=== PATIENT | female | born 1950 | race Caucasian/White ===

== ENCOUNTER 2019-06-04 08:02 | Outpatient (CLI) | payer MEDICARE, SELFPAY ==
[2019-06-04 08:17] LABS: Add Urine Microscopic? NO; Appearance Urine Clear (Clear); Basophils Absolute Auto 0.01 K/mm3 (0.00-0.10); Basophils Percent Auto 0.2 % (0.0-1.0); Bilirubin Urine Negative (Negative); Blood Urine Negative (Negative); Color Urine Yellow (Yellow); Eosinophils Absolute Auto 0.12 K/mm3 (0.02-0.50); Eosinophils Percent Auto 2.8 % (1.0-6.0); Glucose Urine UA Negative (Negative); Hematocrit 39.4 % (35.0-42.0); Hemoglobin 13.1 g/dL (11.7-13.8); Ketones Urine Negative (Negative); Leukocyte Esterase Ur Negative LEU/UL (Negative); Lymphocytes Percent Auto 30.4 % (18.0-42.0); Mean Corpuscular HGB Conc 33.2 g/dL (32.0-36.0); Mean Corpuscular Hemoglobin 30.3 pg (27.0-31.0); Mean Platelet Volume 10.4 fl (9.2-11.8); Monocytes Absolute Auto 0.34 K/mm3 (0.10-0.90); Neutrophils Absolute Auto 2.5 K/mm3 (1.7-7.2); Neutrophils Percent Auto 58.6 % (50.0-70.0); Nitrate Urine Negative (Negative); Platelet Count Result 237 K/mm3 (150-420); Protein Urine Negative (Negative); Red Blood Count 4.33 M/mm3 (4.20-5.40); Red Cell Distribution Width 12.8 % (11.6-14.4); Specific Grav Ur >= 1.030 (1.010-1.020); Urobilinogen Urine 0.2 mg/dL (0.2-1.0); White Blood Count 4.3 K/mm3 (4.8-10.8)
[2019-06-04 09:10] LABS: Alanine Aminotransferase 28 U/L (14-59); Alkaline Phosphatase 61 U/L (46-116); Anion Gap 15.3 mmol/L (7-16); Aspartate Amino Transferase 19 U/L (15-37); Bilirubin,Total 0.6 mg/dL (0.00-1.00); Blood Urea Nitrogen 15 mg/dL (7-18); Calcium 9.1 mg/dL (8.5-10.1); Carbon Dioxide 28 mmol/L (21-32); Chloride 106 mmol/L (98-108); Cholesterol 226 mg/dL (0-200); Estimated Glomerular Filt Rate 60; Glucose 85 mg/dL (70-99); HDL Direct 86 mg/dL (40-60); LDL Cholesterol Calculated 127 mg/dL (<130); Osmolality Calculated 299 mOsm/kg (285-295); Potassium 4.3 mmol/L (3.5-5.1); Sodium 145 mmol/L (136-145); Thyroid Stimulating Hormone 0.95 uIU/mL (0.36-3.74); Total Protein 6.9 g/dL (6.4-8.2); Triglycerides 67 mg/dL (0-150)
== END 2019-06-04 08:03 | disposition home or self-care (01) ==
PROVIDERS: PCP Internal Medicine; Visit Provider Internal Medicine
DX: E03.9 Hypothyroidism, unspecified (principal); E78.5 Hyperlipidemia, unspecified; D72.818 Other decreased white blood cell count; R10.10 Upper abdominal pain, unspecified
CPT/HCPCS: 36415; 80053; 80061; 81003; 84443; 85025

== ENCOUNTER 2020-06-13 08:47 | Outpatient (CLI) | payer MEDICARE, SELFPAY ==
[2020-06-13 09:12] LABS: Basophils Absolute Auto 0.01 K/mm3 (0.00-0.10); Basophils Percent Auto 0.2 % (0.0-1.0); Eosinophils Percent Auto 2.3 % (1.0-6.0); Hematocrit 40.8 % (35.0-42.0); Hemoglobin 13.6 g/dL (11.7-13.8); Immature Granulocyte Absolute 0.01 K/mm3 (0.00-0.00); Immature Granulocyte Percent A 0.2 % (0.0-0.0); Lymphocytes Absolute Auto 1.49 K/mm3 (1.10-4.50); Lymphocytes Percent Auto 34.7 % (18.0-42.0); Mean Corpuscular HGB Conc 33.3 g/dL (32.0-36.0); Mean Corpuscular Hemoglobin 30.4 pg (27.0-31.0); Mean Corpuscular Volume 91.3 fL (78.0-102.0); Mean Platelet Volume 10.5 fl (9.2-11.8); Monocytes Absolute Auto 0.37 K/mm3 (0.10-0.90); Monocytes Percent Auto 8.6 % (2.0-11.0); Neutrophils Absolute Auto 2.3 K/mm3 (1.7-7.2); Platelet Count Result 234 K/mm3 (150-420); Red Blood Count 4.47 M/mm3 (4.20-5.40); White Blood Count 4.3 K/mm3 (4.8-10.8)
[2020-06-13 09:13] LABS: Add Urine Microscopic? NO; Appearance Urine Clear (Clear); Bilirubin Urine Negative (Negative); Blood Urine Negative (Negative); Color Urine Yellow (Yellow); Glucose Urine UA Negative (Negative); Ketones Urine Negative (Negative); Leukocyte Esterase Ur Negative LEU/UL (Negative); Nitrate Urine Negative (Negative); Protein Urine Negative (Negative); Urobilinogen Urine 0.2 mg/dL (0.2-1.0)
[2020-06-13 10:13] LABS: Alanine Aminotransferase 40 U/L (14-59); Albumin Level 4.1 g/dL (3.4-5.0); Alkaline Phosphatase 74 U/L (46-116); Anion Gap 8 mmol/L (8-16); Aspartate Amino Transferase 23 U/L (15-37); Bilirubin,Total 0.7 mg/dL (0.00-1.00); Blood Urea Nitrogen 16 mg/dL (7-18); Calcium 9.3 mg/dL (8.5-10.1); Carbon Dioxide 30 mmol/L (21-32); Chloride 104 mmol/L (98-108); Cholesterol 244 mg/dL (0-200); Estimated Glomerular Filt Rate 56; Glucose 87 mg/dL (70-99); HDL Direct 82 mg/dL (40-60); LDL Cholesterol Calculated 143 mg/dL (<130); Osmolality Calculated 294 mOsm/kg (285-295); Potassium 4.7 mmol/L (3.5-5.1); Sodium 142 mmol/L (136-145); Thyroid Stimulating Hormone 0.59 uIU/mL (0.36-3.74); Total Protein 7.1 g/dL (6.4-8.2); Triglycerides 93 mg/dL (0-150)
== END 2020-06-13 08:48 | disposition home or self-care (01) ==
LOC: CHSLAB 08:49
PROVIDERS: PCP Internal Medicine; Visit Provider Internal Medicine
DX: E03.9 Hypothyroidism, unspecified (principal); E78.5 Hyperlipidemia, unspecified; Z79.899 Other long term (current) drug therapy
CPT/HCPCS: 36415; 80053; 80061; 81003; 84443; 85025

== ENCOUNTER 2021-05-27 07:48 | Outpatient (CLI) | payer MEDICARE, SELFPAY ==
[2021-05-27 08:02] LABS: Basophils Absolute Auto 0.01 K/mm3 (0.00-0.10); Basophils Percent Auto 0.2 % (0.0-1.0); Eosinophils Absolute Auto 0.09 K/mm3 (0.02-0.50); Hematocrit 42.3 % (35.0-42.0); Hemoglobin 14.1 g/dL (11.7-13.8); Lymphocytes Absolute Auto 1.61 K/mm3 (1.10-4.50); Lymphocytes Percent Auto 35.7 % (18.0-42.0); Mean Corpuscular HGB Conc 33.3 g/dL (32.0-36.0); Mean Corpuscular Hemoglobin 30.5 pg (27.0-31.0); Mean Corpuscular Volume 91.4 fL (78.0-102.0); Mean Platelet Volume 10.6 fl (9.2-11.8); Monocytes Absolute Auto 0.33 K/mm3 (0.10-0.90); Monocytes Percent Auto 7.3 % (2.0-11.0); Neutrophils Absolute Auto 2.5 K/mm3 (1.7-7.2); Neutrophils Percent Auto 54.8 % (50.0-70.0); Platelet Count Result 242 K/mm3 (150-420); Red Blood Count 4.63 M/mm3 (4.20-5.40); Red Cell Distribution Width 13.2 % (11.6-14.4); White Blood Count 4.5 K/mm3 (4.8-10.8)
[2021-05-27 08:14] LABS: Add Urine Microscopic? YES; Appearance Urine Sl Cloudy (Clear); Bacteria Urine 2+ /hpf; Bilirubin Urine Negative (Negative); Blood Urine Negative (Negative); Color Urine Yellow (Yellow); Glucose Urine UA Negative (Negative); Ketones Urine Negative (Negative); Leukocyte Esterase Ur Negative LEU/UL (Negative); Nitrate Urine Negative (Negative); Protein Urine Negative (Negative); RBC Urine None seen /hpf (0-2); Specific Grav Ur 1.025 (1.010-1.020); Squamous Epithelial Cell Urine Moderate /hpf (Few); Urobilinogen Urine 0.2 mg/dL (0.2-1.0); WBC Urine 0-3 /hpf (0-3)
[2021-05-27 09:26] LABS: Alanine Aminotransferase 39 U/L (14-59); Albumin Level 3.9 g/dL (3.4-5.0); Alkaline Phosphatase 87 U/L (46-116); Anion Gap 9 mmol/L (8-16); Aspartate Amino Transferase 24 U/L (15-37); Bilirubin,Total 0.5 mg/dL (0.00-1.00); Blood Urea Nitrogen 15 mg/dL (7-18); Calcium 9.1 mg/dL (8.5-10.1); Carbon Dioxide 28 mmol/L (21-32); Chloride 105 mmol/L (98-108); Cholesterol 253 mg/dL (0-200); Estimated Glomerular Filt Rate > 60; Glucose 91 mg/dL (70-99); HDL Direct 85 mg/dL (40-60); LDL Cholesterol Calculated 152 mg/dL (<130); Osmolality Calculated 294 mOsm/kg (285-295); Potassium 4.6 mmol/L (3.5-5.1); Sodium 142 mmol/L (136-145); Thyroid Stimulating Hormone 0.61 uIU/mL (0.36-3.74); Triglycerides 80 mg/dL (0-150)
== END 2021-05-27 07:49 | disposition home or self-care (01) ==
LOC: CHSLAB 07:50
PROVIDERS: PCP Internal Medicine; Visit Provider Internal Medicine
DX: E03.9 Hypothyroidism, unspecified (principal); E78.5 Hyperlipidemia, unspecified
CPT/HCPCS: 36415; 80053; 80061; 81001; 84443; 85025

== ENCOUNTER 2021-06-15 13:50 | Outpatient (CLI) | payer MEDICARE, SELFPAY ==
--- NOTE | ~2021-06-15 | DEXA_ITS ---
Bone Density Report Name: DAMIAN RIZZO Age: 70 Sex: Female Ethnicity: White Date of : 1950 Indication: postmenopausal; screening for osteoporosis; hysterectomy; Referring Provider: Lex Crenshaw Study: Bone densitometry was performed. Exam Date: June 15, 2021 Accession number: [id number] Bone Density: Region BMD T-score Z-score Classification AP Spine(L1-L4) 1.002 -0.4 1.7 Normal Femoral Neck (Left) 0.827 -0.2 1.6 Normal Total Hip (Left) 1.008 0.5 2.0 Normal Femoral Neck (Right) 0.825 -0.2 1.6 Normal Total Hip (Right) 0.947 0.0 1.5 Normal Femoral Neck Mean 0.826 -0.2 1.6 Normal Total Hip Mean 0.978 0.3 1.8 Normal World Health Organization criteria for BMD impression classify patients as: Normal (T-score at or above -1.0), Osteopenia (T-score between -1.0 and -2.5), or Osteoporosis (T-score at or below -2.5). 10-year Fracture Risk: FRAX not reported because: All T-scores for Spine Total, Hip Total, Femoral Neck at or above -1.0 Clinical Information Provided by Patient: Has used the following medications: Calcium Has the following medical conditions: Hysterectomy Patient maximum height was 64 Menopause Age: 40 No regular weight bearing exercise Does not regularly consume dairy products Drinks caffeinated beverages Onset of menses at age 13 Number of children 1 Impression: The patient has normal bone mass. Discussion: BONE DENSITY IS ABOVE THE MINIMUM DESIRABLE LEVEL AT ALL SKELETAL SITES TESTED. This patient?s bone mineral density is above the minimum desirable level (T-score -1.0 or better) at all sites measured. The patient should follow a healthful lifestyle (good nutrition with adequate calcium and vitamin D, and appropriate weight-bearing exercise). Follow-Up: Consider repeating this study in 5 years or sooner if there is some new clinical indication. Reported by: Dr. Artur Ferrera on 06/15/2021 2:11:00 PM. Reviewed, dictated and finalized at location A. [facility]
== END 2021-06-15 13:51 | disposition home or self-care (01) ==
LOC: CHSIMG 13:51
PROVIDERS: PCP Internal Medicine; Visit Provider Internal Medicine
DX: M81.0 Age-related osteoporosis without current pathological fracture (principal)
CPT/HCPCS: 77080

== ENCOUNTER 2022-05-21 07:47 | Outpatient (CLI) | payer MEDICARE, SELFPAY ==
[2022-05-21 08:02] LABS: Appearance Urine Clear (Clear); Bilirubin Urine Negative (Negative); Blood Urine Negative (Negative); Color Urine Light Yellow (Yellow); Eosinophils Absolute Auto 0.09 K/mm3 (0.02-0.50); Eosinophils Percent Auto 2.1 % (1.0-6.0); Glucose Urine UA Negative (Negative); Hematocrit 42.2 % (35.0-42.0); Hemoglobin 13.9 g/dL (11.7-13.8); Ketones Urine Negative (Negative); Leukocyte Esterase Ur Negative LEU/UL (Negative); Lymphocytes Absolute Auto 1.43 K/mm3 (1.10-4.50); Lymphocytes Percent Auto 33.3 % (18.0-42.0); Mean Corpuscular HGB Conc 32.9 g/dL (32.0-36.0); Mean Corpuscular Volume 91.1 fL (78.0-102.0); Mean Platelet Volume 10.6 fl (9.2-11.8); Monocytes Absolute Auto 0.35 K/mm3 (0.10-0.90); Monocytes Percent Auto 8.2 % (2.0-11.0); Neutrophils Absolute Auto 2.4 K/mm3 (1.7-7.2); Neutrophils Percent Auto 56.4 % (50.0-70.0); Nitrate Urine Negative (Negative); Platelet Count Result 248 K/mm3 (150-420); Protein Urine Negative (Negative); Red Blood Count 4.63 M/mm3 (4.20-5.40); Red Cell Distribution Width 13.1 % (11.6-14.4); Specific Grav Ur 1.015 (1.010-1.020); Urobilinogen Urine 0.2 mg/dL (0.2-1.0); White Blood Count 4.3 K/mm3 (4.8-10.8)
[2022-05-21 08:05] LABS: Add Urine Microscopic? NO
[2022-05-21 09:09] LABS: Alanine Aminotransferase 33 U/L (14-59); Alkaline Phosphatase 70 U/L (46-116); Anion Gap 7 mmol/L (8-16); Aspartate Amino Transferase 23 U/L (15-37); Bilirubin,Total 0.5 mg/dL (0.00-1.00); Blood Urea Nitrogen 16 mg/dL (7-18); Calcium 9.1 mg/dL (8.5-10.1); Carbon Dioxide 29 mmol/L (21-32); Chloride 106 mmol/L (98-108); Cholesterol 244 mg/dL (0-200); Estimated Glomerular Filt Rate > 60; Free T3 2.61 pg/mL (2.18-3.98); Free T4 Free Thyroxine 1.17 ng/dL (0.76-1.46); Glucose 91 mg/dL (70-99); HDL Direct 77 mg/dL (40-60); LDL Cholesterol Calculated 147 mg/dL (<130); Osmolality Calculated 295 mOsm/kg (285-295); Potassium 4.5 mmol/L (3.5-5.1); Sodium 142 mmol/L (136-145); Thyroid Stimulating Hormone 0.29 uIU/mL (0.36-3.74); Triglycerides 99 mg/dL (0-150)
== END 2022-05-21 07:48 | disposition home or self-care (01) ==
PROVIDERS: PCP Internal Medicine; Visit Provider Internal Medicine
DX: E03.9 Hypothyroidism, unspecified (principal); I10 Essential (primary) hypertension; E78.5 Hyperlipidemia, unspecified; N39.0 Urinary tract infection, site not specified
CPT/HCPCS: 36415; 80053; 80061; 81003; 84439; 84443; 84481; 85025

== ENCOUNTER 2023-05-03 18:47 | Outpatient (CLI) | payer MEDICARE, SELFPAY ==
--- NOTE | ~2023-05-03 | XR_ITS ---
EXAMINATION: XR chest 2V Exam Date/Time: 05/03/2023 18:55 CORRECTIONAL GUARD HISTORY: F/U FOR PNEUMONIA Comparison: 10/14/2016. RESULT: Lines, tubes, and devices: None. Lungs and pleura: Clear. Senescent changes. Granulomatous calcifications. Cardiomediastinal silhouette: Stable. Other: No acute osseous or upper abdominal finding. IMPRESSION: No acute cardiopulmonary process. Reviewed, dictated and finalized at location K. ECTIONAL GUARD
== END 2023-05-03 18:48 | disposition home or self-care (01) ==
LOC: CHSIMG 18:50
PROVIDERS: PCP Internal Medicine; Visit Provider Internal Medicine
DX: J18.8 Other pneumonia, unspecified organism (principal)
CPT/HCPCS: 71046

== ENCOUNTER 2023-06-15 07:51 | Outpatient (CLI) | payer MEDICARE, SELFPAY ==
[2023-06-15 08:08] LABS: Eosinophils Absolute Auto 0.07 K/mm3 (0.02-0.50); Eosinophils Percent Auto 1.6 % (1.0-6.0); Hematocrit 42.7 % (35.0-42.0); Hemoglobin 14.2 g/dL (11.7-13.8); Immature Granulocyte Absolute 0.01 K/mm3 (0.00-0.00); Immature Granulocyte Percent A 0.2 % (0.0-0.0); Lymphocytes Absolute Auto 1.46 K/mm3 (1.10-4.50); Lymphocytes Percent Auto 33.2 % (18.0-42.0); Mean Corpuscular HGB Conc 33.3 g/dL (32-36); Mean Corpuscular Hemoglobin 29.8 pg (27.0-31.0); Mean Corpuscular Volume 89.5 fL (78.0-102.0); Mean Platelet Volume 10.6 fl (9.2-11.8); Monocytes Absolute Auto 0.34 K/mm3 (0.10-0.90); Monocytes Percent Auto 7.7 % (2.0-11.0); Neutrophils Absolute Auto 2.52 K/mm3 (1.70-7.20); Neutrophils Percent Auto 57.3 % (50.0-70.0); Platelet Count Result 230 K/mm3 (150-420); Red Blood Count 4.77 M/mm3 (4.20-5.40); White Blood Count 4.4 K/mm3 (4.8-10.8)
[2023-06-15 08:10] LABS: Appearance Urine Clear (Clear); Bilirubin Urine Negative (Negative); Blood Urine Negative (Negative); Color Urine Yellow (Yellow); Glucose Urine UA Negative (Negative); Ketones Urine Negative (Negative); Leukocyte Esterase Ur Negative LEU/UL (Negative); Nitrate Urine Negative (Negative); Protein Urine Negative (Negative); Specific Grav Ur 1.015 (1.010-1.020); Urobilinogen Urine 0.2 mg/dL (0.2-1.0)
[2023-06-15 08:14] LABS: Add Urine Microscopic? NO
[2023-06-15 08:57] LABS: Alanine Aminotransferase 35 U/L (14-59); Albumin Level 3.9 g/dL (3.4-5.0); Alkaline Phosphatase 72 U/L (46-116); Anion Gap 9 mmol/L (8-16); Aspartate Amino Transferase 25 U/L (15-37); Bilirubin,Total 0.5 mg/dL (0.00-1.00); Blood Urea Nitrogen 19 mg/dL (7-18); Calcium 9.3 mg/dL (8.5-10.1); Carbon Dioxide 27 mmol/L (21-32); Chloride 106 mmol/L (98-108); Cholesterol 254 mg/dL (0-200); Estimated Glomerular Filt Rate > 60; Glucose 92 mg/dL (70-99); HDL Direct 90 mg/dL (40-60); LDL Cholesterol Calculated 147 mg/dL (<130); Osmolality Calculated 296 mOsm/kg (285-295); Potassium 4.5 mmol/L (3.5-5.1); Sodium 142 mmol/L (136-145); Thyroid Stimulating Hormone 0.39 uIU/mL (0.36-3.74); Total Protein 6.8 g/dL (6.4-8.2); Triglycerides 84 mg/dL (0-150)
== END 2023-06-15 07:52 | disposition home or self-care (01) ==
LOC: CHSLAB 07:53
PROVIDERS: PCP Internal Medicine; Visit Provider Internal Medicine
DX: E03.9 Hypothyroidism, unspecified (principal); E78.5 Hyperlipidemia, unspecified
CPT/HCPCS: 36415; 80053; 80061; 81003; 84443; 85025

== ENCOUNTER 2024-04-27 10:41 | Outpatient (CLI) | payer MEDICARE, SELFPAY ==
--- NOTE | ~2024-04-27 | XR_ITS ---
EXAMINATION: XR lumbar spine 2-3V DATE: 04/27/2024 11:03 INDICATION: Low back pain rating down left leg. TECHNIQUE: 3 views of lumbar spine were obtained. COMPARISON: None. FINDINGS: There is 3 degrees levocurvature of thoracolumbar spine. Vertebral body heights are normal. There is mildly decreased disc height at L4-L5. There are endplate osteophytes at most levels. There is multilevel [id number] facet joint osteoarthritis. There are surgical clips in the pelvis. IMPRESSION: 1. Mild lumbar spondylosis. Reviewed, dictated and finalized at location A. IT[employer] IMPROVEMENT COORDINATOR IMPRESSION: 1. Mild lumbar spondylosis.
--- OUTSIDE RECORDS SUMMARY | 2024-04-27 10:48 | XMS_ITS | Clinical Summary ---
Author Organization [facility] Address [facility]. [place], [place] [address] [place] [address] Care Team Providers Care Cattle Examiner Name Role Phone Lex Peraza MD Primary Care Provider [phone] Allergies No known active allergies Medications esomeprazole 20 MG capsule Take 20 mg by mouth. 1 Active levothyroxine 75 MCG tablet 1 Active PREMARIN 0.625 MG/GM vaginal cream Place 1 g vaginally 2 (two) times daily as needed. 2 Active famotidine (PEPCID) 10 MG tablet Take 10 mg by mouth 2 (two) times daily. Active Family History Medical History Relation Comments Cancer Father COPD Mother Breast Cancer Paternal Aunt Relation Status Comments Father Mother Paternal Aunt Social History Tobacco Use Types Packs/Day Years Used Date Smoking Tobacco: Never Smokeless Tobacco: Never Alcohol Use Standard Drinks/Week Comments Not Currently 0 (1 standard drink = 0.6 oz pur e alcohol) Comments No Sex and Gender Information Value Date Recorded Sex Assigned at Not on file Legal Sex Female 9:41 PM CDT Gender Identity Not on file Sexual Orientation Not on file Last Filed Vital Signs Vital Sign Reading Time Taken Comments Blood Pressure 132/79 01/05/2022 9:21 AM CDT Pulse 56 01/05/2022 9:21 AM CDT Temperature 36.1 ??C (97 ??F) 01/05/2022 9:21 AM CDT Respiratory Rate 18 01/05/2022 9:21 AM CDT Oxygen Saturation 100% 01/05/2022 9:21 AM CDT Inhaled Oxygen Concentration - - Weight 77.1 kg (170 lb) 12/29/2021 1:41 PM CDT Height 162.6 cm (5' 4 ) 12/29/2021 1:41 PM CDT Body Mass Index 29.18 12/29/2021 1:41 PM CDT Plan of Treatment Health Maintenance Due Date Last Done Comments Hepatitis C 08[birth year]05/1969 Annual Medicare Wellness Visit 08/05/2016 Dexa Scan (General) 08/05/2016 Pneumococcal Vaccine: 65+ Years (2 of 2 - PCV) 06/03/2022 06/03/2021 COVID-19 Vaccine ( season) 2023 07/31/2021, 01/29/2021, 05/29/2020, Additional history exists Influenza Adult (#1) 2023 01/03/2020, 12/20/2017, 11/22/2016, Additional history exists Mammogram Screening 06/15/2025 06/16/2023, 04/29/2022, 04/21/2021, Additional history exists DTaP, Tdap and Td Vaccines (2 - Td or Tdap) 04/22/2026 04/22/2016 RSV Immunization or 60+ Years (1 - 1-dose 75+ series) 08/05/2026 Colorectal Cancer Screening Colonoscopy (10 Years) 01/06/2032 01/05/2022, 01/05/2022 Zoster Vaccines Completed 02/11/2021, 11/19/2020 Meningococcal B Vaccine Aged Out No l onger eligible based on patient's age to complete this topic Meningococcal Vaccine Aged Out No maurice cortez eligible based on patient's age to complete this topic RSV Immunizations Under 20 Months Aged Out No longer eligible based on patient's age to complete this topic Procedures Procedure Name Priority Date/Time Associated Diagnosis Comments MG SCREENING W TENZIN KIMBERLI DIGI Routine 06/16/2023 10:57 AM CDT Visit for screening mammogram COLONOSCOPY 01/05/2022 6:44 AM CDT from Last 3 Months or Most Recently Relevant to Health Maintenance Results * MG SCREENING W TENZIN KIMBERLI DIGI (06/16/2023 10:57 AM CDT) Anatomical Region Laterality Modality Breast Bilateral Mammography 06/16/2023 2:32 PM CDT Narrative 06/16/2023 2:35 PM CDT EXAMINATION: BILATERAL SCREENING MAMMOGRAPHY Exam Date: 06/16/2023 10:34 AM ? CLINICAL INDICATION: ??72 years ??of age female routine screening. COMPARISON: Screening mammogram(s) dating back to 02/11/2015. TECHNIQUE: Digital CC & MLO views. Tomosynthesis imaging acquisition Study read with the assistance of a computer-aided detection system. TISSUE DENSITY: The breast tissue is heterogeneously dense, which may obscure small masses. FINDINGS: Benign calcifications and intramammary and axillary lymph nodes and probable fibrocystic changes No suspicious grouping of microcalcifications, architectural distortion, or new dominant suspicious nodule 3 dimensionally demonstrated in either breast. IMPRESSION: No interval features to suggest malignancy. In the absence of clinical symptoms, return for annual screening mammogram due in 1 year. RECOMMENDATION: Routine Screening, Bilateral in 1 year ASSESSMENT: ACR BI-RADS 2 - BENIGN FINDING(S) Ordered By: LEX PERAZA Interpreted By: Josr Patton MD, 06/16/2023 2:32 PM Lex Peraza MD MAMMO Final Result * Colonoscopy (01/05/2022 6:44 AM CDT) He Macias MD GI PROCEDURE ORDERABLES Final Result from Last 3 Months or Most Recently Relevant to Health Maintenance Insurance [employer] Care Teams Cattle Examiner Relationship Specialty Start Date End Date Lex Peraza MD [address] [place] [id number] PCP - General INTERNAL MEDICINE 02/26/19
--- OUTSIDE RECORDS SUMMARY | 2024-04-27 10:48 | XMS_ITS | Clinical Summary ---
Author Organization [facility] Address [address], [address] [address] Phone Care Team Providers Care Stave Block Splitter Name Role Phone Lex Crenshaw MD Primary Care Provider [phone] Medications esomeprazole (NEXIUM) 40 MG Pack Take 40 mg by mouth every morning (before breakfast). Active levothyroxine (SYNTHROID) 75 MCG Tablet Take 75 mcg by mouth daily. Active conjugated estrogens (PREMARIN) 0.625 MG/GM Cream by Vaginal route nightly. Once daily for 21 days, then off for 7 days. Active Family History Medical History Relation Name Comments No Known Problems Father No Known Problems Mother Relation Name Status Comments Father Bleeding ulcer Mother Pulmary issure, congestive heart failure, Bowel obstruction Social History Tobacco Use Types Packs/Day Years Used Date Smoking Tobacco: Never Smokeless Tobacco: Never Alcohol Use Standard Drinks/Week Comments Not Currently 0 (1 standard drink = 0.6 oz pur e alcohol) Comments Unknown Sex and Gender Information Value Date Recorded Sex Assigned at Not on file Legal Sex Female 11:13 AM CDT Gender Identity Not on file Sexual Orientation Not on file 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 Not on file Not on file Not o n file Last Filed Vital Signs Vital Sign Reading Time Taken Comments Blood Pressure 114/72 10/25/2018 9:31 AM CDT Pulse - - Temperature - - Respiratory Rate - - Oxygen Saturation - - Inhaled Oxygen Concentration - - Weight 73.2 kg (161 lb 6.4 oz) 10/25/2018 9:31 A M CDT Height - - Body Mass Index - - Plan of Treatment Health Maintenance Due Date Last Done Comments DEXA Bone Density 1950 Hepatitis C Virus (HCV) Screening 1950 Colonoscopy 08/05/1996 Colorectal Cancer Screening 08/05/1996 Cologuard 08/05/2001 Immunochemical Fecal Occult Blood 08/05/2001 Mammogram 08/05/2001 Pneumococcal Immunization (5 0+ years) (1 of 1 - PCV) 08/05/2001 Zoster Immunization (1 of 2) 08/05/2001 Influenza Immunization (#1) 11/27/20232 07/2017, 01/06/2016 SARS-COV-2 Immunization ( season) 2023 01/29/2021, 05/29/2020, 05/01/2020 Respiratory Syncytial Virus (RSV) Immunization (Adult) (1 - 1-dose 75+ series) 08/05/2026 DTaP/Tdap/Td Immunization Discontinued 04/22/2016 TdaP Immunization Completed 04/22/2016 Hepatitis B Immunization Aged Out No longer eligible based on patient's age to complete this topic Meningococcal Immunization (ACWY) Aged Out No longer eligible based on patient's age to complete this topic Rotavirus Immunization Aged Out No lo nger eligible based on patient's age to complete this topic Care Teams Stave Block Splitter Relationship Specialty Start Date End Date Lex Crenshaw MD [address] [place] [address] PCP - General Internal Medicine 08/22/18
== END 2024-04-27 10:42 | disposition home or self-care (01) ==
LOC: CHSIMG 10:44
PROVIDERS: PCP Internal Medicine; Visit Provider Nurse Practitioner Family
DX: M54.42 Lumbago with sciatica, left side (principal); M43.06 Spondylolysis, lumbar region
CPT/HCPCS: 72100

== ENCOUNTER 2024-05-02 08:05 | Outpatient (RCR) | payer MEDICARE, SELFPAY ==
--- NOTE | 2024-05-02 09:14 | OPREHPOC ---
Outpatient Therapy Plan of Care This is a Multidisciplinary Plan of Care that may contain components documented by all disciplines (PT, OT, and ST.) PT Problem 1 PT Problem #1 Knowledge Deficit PT Goal 1 Goal / Goal Update The patient will be independent in a home exercise program. Target Visit 2 PT Problem 2 PT Problem #2 Pain PT Goal 1 Goal / Goal Update The patient will report no greater than 1/10 left hip and low back pain with sleeping and laying on her side. Target Visit 8 PT Problem 3 PT Problem #3 Impaired Functional Mobility PT Goal 1 Goal / Goal Update The patient will demonstrate 5% or less self perceived disability per the Back Index questionnaire. Target Visit 8 PT Problem 4 PT Problem #4 Impaired Strength PT Goal 1 Goal / Goal Update The patient will demonstrate 4/5 strength in the left hip abductors and extensors and lower abdominals to support the spine and hip girdle. Target Visit 8
--- NOTE | 2024-05-02 09:15 | PTOPEVAL1 ---
Assessment and note entered by Jessica Pedroza, PT Evaluation Information Assessment Status Evaluation ICD-10 Condition Codes (PT) Radiculopathy, lumbar region M54.16 Onset 04/27/24 Subjective Information Nandini Garcia reports she started having pain in both hips while sleeping. She is a side sleeper. She woke a few weeks ago with pain in her left hip and numbness in her left leg. She went to the doctor and was started on prednisone. The predisone has taken the numbness away. She still has achiness in the center of the low back and left hip. She reports a history Reported Pain Level Pain Score 3: Self Report Assessment PT Clinical Summary Nandini Garcia presents with acute low back pain with radiation to the left LE that started approximately 2 weeks ago. She was started on prednisone by her physician and that took care of the numbness and radiating pain. She continues to have achiness in the left hip and lower back. She is having difficulty with lying on her side and sleeping. She objectively demonstrates tenderness over the left posterior hip and lumbosacral spine, decreased bilateral hamstring and piriformis flexibility, and decreased left > right hip and core strength. She will benefit from skilled PT to address these limitations. Plan of Care Interventions Electrical Stimulation,Hot Pack/Cold Pack,Manual Therapy,Mechanical Traction,Neuro Re-education, Patient/Caregiver Education,Therapeutic Activities ,Therapeutic Exercise PT Services Indicated Yes Treatment Frequency and 2 times a week for 8 visits Duration These treatments will address the objective and functional deficits as defined above. The patient will be advanced safely and appropriately in order for the patient to progress towards his/her prior level of function. Additional exercises will be introduced and as well as a comprehensive home exercise program upon discharge, if needed, ?to ensure carryover of functional gains achieved in the clinic. This treatment plan has been reviewed and agreement upon by the patient.
--- NOTE | 2024-06-12 15:31 | PTOPDC ---
Assessment and note entered by Jessica Pedroza, PT Evaluation Information Assessment Status Discharge - Pt Not Present ICD-10 Condition Codes (PT) Radiculopathy, lumbar region M54.16 Onset 04/27/24 Subjective Information Pt did not show up for her discharge evaluation but was reporting improved pain on her last treatment session. Reported Pain Level Pain Score 0: Self Report Assessment PT Clinical Summary Nandini Garcia completed 5 skilled PT visits and was reporting improved pain on her last visit. She did not show up for her discharge assessment and was not formally reassessed. She is disharged. Plan of Care PT Services Indicated No
== END 2024-05-14 20:00 | disposition home or self-care (01) ==
LOC: CHSPT 08:05
PROVIDERS: Visit Provider Nurse Practitioner Family
DX: M54.50 Low back pain, unspecified (principal); M54.16 Radiculopathy, lumbar region
CPT/HCPCS: 97014; 97110; 97140; 97150; 97161; 97530; G0283

== ENCOUNTER 2024-06-06 07:52 | Outpatient (CLI) | payer MEDICARE, SELFPAY ==
--- OUTSIDE RECORDS SUMMARY | 2024-06-06 07:58 | XMS_ITS | Clinical Summary ---
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
--- OUTSIDE RECORDS SUMMARY | 2024-06-06 07:59 | XMS_ITS | Clinical Summary ---
Author Organization [facility] Address [address] [place] [address] Care Team Providers Care Supervisor Vegetable Farming Name Role Phone Lex Peraza MD Primary Care Provider [phone] Allergies No known active allergies Medications esomeprazole [...] 56 01/05/2022 9:21 AM CDT Temperature 36.1 C (97 F) 01/05/2022 9:21 AM CDT Respiratory Rate 18 01/05/2022 9:21 AM CDT Oxygen Saturation 100% 01/05/2022 9:21 AM CDT Inhaled Oxygen Concentration - - Weight 77.1 kg (170 lb) 12/29/2021 1:41 PM CDT Height 162.6 cm (5' 4 ) 12/29/2021 1:41 PM CDT Body Mass Index 29.18 12/29/2021 1:41 PM CDT Plan of Treatment Upcoming Encounters Date Type Department Care Team (Late st Contact Info) Description 06/20/2024 10:[address] [facility] [address] [place] [address] Lex Peraza MD [address] [place] [address] Health Maintenance Due Date Last Done Comments [...] SCREENING MAMMOGRAPHY Exam Date: 06/16/2023 10:34 AM CLINICAL INDICATION: 72 years of age female routine screening. COMPARISON: Screening mammogram(s) [...] to Health Maintenance Insurance [employer] Care Teams Supervisor Vegetable Farming Relationship Specialty Start Date End Date Lex Peraza MD [address] [place] [address] PCP - General INTERNAL MEDICINE 02/26/19
[2024-06-06 08:09] LABS: Add Urine Microscopic? YES; Appearance Urine Sl Cloudy (Clear); Basophils Absolute Auto 0.01 K/mm3 (0.00-0.10); Basophils Percent Auto 0.2 % (0.0-1.0); Bilirubin Urine Negative (Negative); Blood Urine Negative (Negative); Color Urine Light Yellow (Yellow); Eosinophils Percent Auto 2.3 % (1.0-6.0); Glucose Urine UA Negative (Negative); Hematocrit 42.2 % (35.0-42.0); Hemoglobin 13.6 g/dL (11.7-13.8); Immature Granulocyte Absolute 0.01 K/mm3 (0.00-0.00); Immature Granulocyte Percent A 0.2 % (0.0-0.0); Ketones Urine Negative (Negative); Leukocyte Esterase Ur Negative LEU/UL (Negative); Lymphocytes Absolute Auto 1.38 K/mm3 (1.10-4.50); Lymphocytes Percent Auto 32.4 % (18.0-42.0); Mean Corpuscular HGB Conc 32.2 g/dL (32-36); Mean Corpuscular Hemoglobin 29.2 pg (27.0-31.0); Mean Corpuscular Volume 90.8 fL (78.0-102.0); Mean Platelet Volume 10.4 fl (9.2-11.8); Monocytes Absolute Auto 0.36 K/mm3 (0.10-0.90); Monocytes Percent Auto 8.5 % (2.0-11.0); Neutrophils Percent Auto 56.4 % (50.0-70.0); Nitrate Urine Negative (Negative); Platelet Count Result 250 K/mm3 (150-420); Protein Urine Negative (Negative); Red Blood Count 4.65 M/mm3 (4.20-5.40); Red Cell Distribution Width 13.4 % (11.6-14.4); Urobilinogen Urine 0.2 mg/dL (0.2-1.0); White Blood Count 4.3 K/mm3 (4.8-10.8)
[2024-06-06 08:20] LABS: Bacteria Urine 2+ /hpf; RBC Urine None seen /hpf (0-2); Squamous Epithelial Cell Urine Few /hpf (Few); WBC Urine None seen /hpf (0-3)
[2024-06-06 08:57] LABS: Alanine Aminotransferase 37 U/L (14-59); Albumin Level 4.1 g/dL (3.4-5.0); Alkaline Phosphatase 99 U/L (46-116); Anion Gap 6 mmol/L (4-12); Aspartate Amino Transferase 23 U/L (15-37); Bilirubin,Total 0.7 mg/dL (0.00-1.00); Blood Urea Nitrogen 19 mg/dL (7-18); Calcium 9.4 mg/dL (8.5-10.1); Carbon Dioxide 30 mmol/L (21-32); Chloride 106 mmol/L (98-108); Cholesterol 267 mg/dL (0-200); Estimated Glomerular Filt Rate 59; Glucose 96 mg/dL (70-99); HDL Direct 88 mg/dL (40-60); LDL Cholesterol Calculated 163 mg/dL (<130); Osmolality Calculated 296 mOsm/kg (285-295); Potassium 4.6 mmol/L (3.5-5.1); Sodium 142 mmol/L (136-145); Thyroid Stimulating Hormone 0.56 uIU/mL (0.36-3.74); Total Protein 7.1 g/dL (6.4-8.2); Triglycerides 79 mg/dL (0-150)
== END 2024-06-06 07:53 | disposition home or self-care (01) ==
LOC: CHSLAB 07:55
PROVIDERS: PCP Internal Medicine; Visit Provider Internal Medicine
DX: E03.9 Hypothyroidism, unspecified (principal); E78.5 Hyperlipidemia, unspecified; D72.818 Other decreased white blood cell count
CPT/HCPCS: 36415; 80053; 80061; 81001; 84443; 85025

== ENCOUNTER 2024-07-11 12:59 | Outpatient (CLI) | payer MEDICARE, SELFPAY ==
--- NOTE | ~2024-07-11 | DEXA_ITS ---
Bone Density Report Name: DAMIAN RIZZO Age: 73 Sex: Female Ethnicity: White Date of : 1950 Indication: postmenopausal; screening for osteoporosis; hysterectomy; Referring Provider: Lex Crenshaw Study: Bone densitometry was performed. Exam Date: July 11, 2024 Accession number: [id number] Bone Density: Region BMD T-score Z-score Classification AP Spine(L1-L4) 1.008 -0.4 1.9 Normal Femoral Neck (Left) 0.748 -0.9 1.1 Normal Total Hip (Left) 1.001 0.5 2.1 Normal Femoral Neck (Right) 0.781 -0.6 1.4 Normal Total Hip (Right) 0.985 0.4 2.0 Normal Femoral Neck Mean 0.765 -0.8 1.2 Normal Total Hip Mean 0.993 0.4 2.1 Normal World Health Organization criteria for BMD impression classify patients as: Normal (T-score at or above -1.0), Osteopenia (T-score between -1.0 and -2.5), or Osteoporosis (T-score at or below -2.5). 10-year Fracture Risk: FRAX not reported because: All T-scores for Spine Total, Hip Total, Femoral Neck at or above -1.0 Previous Exams: Region Exam Age BMD T-score BMD Change BMD Change Date g/cm2 vs Baseline vs Previous AP Spine (L1-L4) 07/11/2024 73 1.008 -0.4 0.006 (0.6%) 0.006 (0.6%) 06/15/2021 70 1.002 -0.4 Total Hip(Left) 07/11/2024 73 1.001 0.5 -0.006 (-0.6%) -0.006 (-0.6%) 06/15/2021 70 1.008 0.5 Total Hip(Right) 07/11/2024 73 0.985 0.4 0.038 (4.0%)* 0.038 (4.0%)* 06/15/2021 70 0.947 0.0 *Denotes significance at 95% confidence level, LSC for AP Spine = 0.022 g/cm2, LSC for Total Hip = 0.027 g/cm2 Clinical Information Provided by Patient: Has used the following medications: Calcium, MULTI Has the following medical conditions: Hysterectomy Patient maximum height was 64 Menopause Age: 40 Drinks caffeinated beverages Onset of menses at age 14 Number of children 1 Impression: The patient has normal bone mass. No significant bone loss was observed. Discussion: BONE DENSITY IS ABOVE THE MINIMUM DESIRABLE LEVEL AT ALL SKELETAL SITES TESTED. This patient?s bone mineral density is above the minimum desirable level (T-score -1.0 or better) at all sites measured. The patient should follow a healthful lifestyle (good nutrition with adequate calcium and vitamin D, and appropriate weight-bearing exercise). Follow-Up: Consider repeating this study in 5 years or sooner if there is some new clinical indication. Reported by: BUBBA on 07/11/2024 1:40:00 PM. Reviewed, dictated and finalized at location A.
--- OUTSIDE RECORDS SUMMARY | 2024-07-11 14:03 | XMS_ITS | Clinical Summary ---
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 file Not on file Not [...] Due Date Last Done Comments Hepatitis C Virus (HCV) Screening 1950 Colonoscopy 08/05/1996 Colorectal Cancer Screening 08/05/1996 Cologuard 08/05/2001 Immunochemical Fecal Occult Blood 08/05/2001 Pneumococcal Immunization (5 0+ years) (1 of 1 - PCV) 08/05/2001 Zoster Immunization (1 of 2) 08/05/2001 Influenza Immunization (#1) 11/27/202311/27, 11/22/2016, 01/06/2016 SARS-COV-2 Immunization ( season) 2023 01/29/2021, [...] age to complete this topic Care Teams Oil Separator Relationship Specialty Start Date End Date Lex Crenshaw MD [address] [place] [address] PCP - General Internal Medicine 08/22/18
--- OUTSIDE RECORDS SUMMARY | 2024-07-11 14:03 | XMS_ITS | Clinical Summary ---
Author Organization [facility] Address [address] [place] [address] Care Team Providers Care Plastic Shaper Name Role Phone Lex Peraza MD Primary Care Provider [phone] Allergies No known active allergies Medications esomeprazole 20 MG capsule Take 20 mg by mouth. 1 Active levothyroxine 75 MCG tablet 1 Active PREMARIN 0.625 MG/GM vaginal cream Place 1 g vaginally 2 (two) times daily as needed. 2 Active famotidine (PEPCID) 10 MG tablet Take 10 mg by mouth 2 (two) times daily. Active Encounters Date Type Department Care Team Description 06/20/2024 10:12 AM CDT - 06/20/2024 11:59 PM CDT Hospital Encounter [facility] [address] [place] [address] Lex Peraza MD Discharge Disposition: Home or Self Care (Routine Discharge) 06/20/2024 Travel from Last 3 Months Family History Medical History Relation Comments Cancer [...] 08/05/2016 Dexa Scan (General) 08/05/2016 Pneumococcal Vaccine: 50+ Years (2 of 2 - PCV) 06/03/2022 06/03/2021 COVID-19 Vaccine ( season) 2023 07/31/2021, 01/29/2021, 05/29/2020, Additional history exists DTaP, Tdap and Td Vaccines (2 - Td or Tdap) 04/22/2026 04/22/2016 Mammogram Screening 06/20/2026 06/20/2024, 06/16/2023, 04/29/2022, Additional history exists RSV Immunization or 60+ Years (1 - [...] MG SCREENING W TENZIN KIMBERLI DIGI Routine 06/20/2024 11:12 AM CDT Visit for screening mammogram COLONOSCOPY 01/05/2022 6:44 AM CDT from Last 3 Months or Most Recently Relevant to Health Maintenance Results * MG SCREENING W TENZIN KIMBERLI DIGI (06/20/2024 11:12 AM CDT) Anatomical Region Laterality Modality Breast Bilateral Mammography 06/20/2024 10:4 1 AM CDT Impressions 06/20/2024 10:41 AM CDT IMPRESSION: No suspicious change since the previous exams. Recommendation: 1: Routine Screening Bilateral in 1 Year Assessment: ACR BI-RADS 2 - BENIGN FINDING(S) Ordered By: LEX PERAZA Interpreted By: Declan Friedman MD, 06/20/2024 10:41 AM Narrative 06/20/2024 10:41 AM CDT [address] [place] [address] Examination: Digital screening mammogram with CAD. Clinical history: Asymptomatic patient presents for routine screening. Comparison: 06/16/2023, 04/29/2022, 04/21/2021, 04/10/2020. Technique: Bilateral digital mammograms. The exam was interpreted with the use of a computer-aided detection (CAD) system. Additional 3-D tomosynthesis images were acquired. Tissue density: The breasts are heterogeneously dense which may obscure small masses. Findings: The breast tissue is heterogeneously dense. The dense tissue may obscure some lesions mammographically. Benign-appearing calcification and benign-appearing intramammary lymph nodes noted. No suspicious mass, microcalcification or area of architectural distortion can be identified. From a mammographic standpoint, routine followup in one year would seem adequate. Lex Peraza MD MAMMO Final Result * Colonoscopy (01/05/2022 6:44 AM CDT) He Macias MD GI PROCEDURE ORDERABLES Final Result from Last 3 Months or Most Recently Relevant to Health Maintenance Insurance [employer] Care Teams Plastic Shaper Relationship Specialty Start Date End Date Lex Peraza MD [address] [place] [address] PCP - General INTERNAL MEDICINE 02/26/19
== END 2024-07-11 13:00 | disposition home or self-care (01) ==
LOC: CHSIMG 13:02
PROVIDERS: PCP Internal Medicine; Visit Provider Internal Medicine
DX: Z78.0 Asymptomatic menopausal state (principal)
CPT/HCPCS: 77080

== ENCOUNTER 2025-01-04 07:57 | Outpatient (CLI) | payer MEDICARE, SELFPAY ==
--- OUTSIDE RECORDS SUMMARY | 2025-01-04 08:03 | XMS_ITS | Clinical Summary ---
Author Organization [facility] Address [address], [address] [address] Phone Care Team Providers Care Room Attendant Name Role Phone Lex Crenshaw MD Primary Care Provider [phone] Medications esomeprazole (NEXIUM) 40 MG Pack Take [...] Job Start Date Job End Date retired middle school resource teacher Not on file Not on file Not [...] Comments Hepatitis C Virus (HCV) Screening 1950 Cologuard 08/05/1996 Colonoscopy 08/05/1996 Colorectal Cancer Screening 08/05/1996 Immunochemical Fecal Occult Blood 08/05/1996 Pneumococcal Immunization (5 0+ years) (1 of 1 - PCV) 08/05/2001 Zoster Immunization (1 of 2) 08/05/2001 Influenza Immunization (#1) 11/26/20242 07/2017, 11/22/2016, 01/06/2016 SARS-COV-2 Immunization ( season) 2024 01/29/2021, 05/29/2020, 05/01/2020 Respiratory Syncytial Virus (RSV) Immunization (Adult) (1 - 1-dose 75+ series) 08/05/2026 DTaP/Tdap/Td Immunization Discontinued 04/22/2016 TdaP Immunization Completed 04/22/2016 Hepatitis B Immunization Aged Out No longer eligible based on patient's age to complete this topic Human Papillomavirus (HPV) Immunization Aged Out No longer eligible based on patient's age to complete this topic Meningococcal Immunization (ACWY) Aged Out No longer eligible based on patient's age to complete this topic Rotavirus Immunization Aged Out No lo nger eligible based on patient's age to complete this topic Care Teams Room Attendant Relationship Specialty Start Date End Date Lex Crenshaw MD [address] [place] [address] PCP - General Internal Medicine 08/22/18
[2025-01-04 08:21] LABS: Hematocrit 39.4 % (35.0-42.0); Hemoglobin 13.0 g/dL (11.7-13.8); Mean Corpuscular HGB Conc 33.0 g/dL (32-36); Mean Corpuscular Hemoglobin 29.9 pg (27.0-31.0); Mean Corpuscular Volume 90.6 fL (78.0-102.0); Platelet Count Result 237 K/mm3 (150-420); Red Blood Count 4.35 M/mm3 (4.20-5.40); White Blood Count 4.1 K/mm3 (4.8-10.8)
[2025-01-04 09:20] LABS: Alanine Aminotransferase 23 U/L (6-35); Albumin Level 4.4 g/dL (3.5-5.1); Alkaline Phosphatase 75 U/L (38-126); Anion Gap 7 mmol/L (4-12); Aspartate Amino Transferase 28 U/L (14-36); Bilirubin,Total 0.6 mg/dL (0.2-1.3); Blood Urea Nitrogen 13 mg/dL (7-17); Calcium 9.6 mg/dL (8.4-10.2); Carbon Dioxide 27 mmol/L (22-30); Chloride 108 mmol/L (98-107); Cholesterol 176 mg/dL (0-200); Estimated Glomerular Filt Rate 56; Glucose 98 mg/dL (65-110); HDL Direct 89 mg/dL; Osmolality Calculated 294 mOsm/kg (285-295); Potassium 4.7 mmol/L (3.4-5.0); Sodium 142 mmol/L (137-145); Total Protein 7.7 g/dL (6.3-8.2); Triglycerides 80 mg/dL (<150)
== END 2025-01-04 07:58 | disposition home or self-care (01) ==
LOC: CHSLAB 07:59
PROVIDERS: PCP Internal Medicine; Visit Provider Internal Medicine
DX: E78.5 Hyperlipidemia, unspecified (principal)
CPT/HCPCS: 36415; 80053; 80061; 85027